=== PATIENT | female | born 1985 | race American Indian/Alaskan Native ===

== ENCOUNTER 2018-01-19 14:11 | Emergency (ER) | payer MEDICAID ==
[2018-01-19 14:26] VITALS: BP 111/67; PULSE 104; TEMP 98.1
--- NOTE | 2018-01-19 15:29 | ED PDOC ---
HPI: Back Time Seen by Provider: 01/19/18 14:20 Chief Complaint (Nursing): Back Pain Chief Complaint (Provider): Bilateral low back pain History Per: Patient History/Exam Limitations: no limitations Onset/Duration Of Symptoms: Days Current Symptoms Are (Timing): Still Present Additional Complaint(s): 32 yo female with low back pain comes to ER for US. Pt states she took a urine test which was negative but she is certain she is . Pt does not remember last period. denies N/V/D. No radiation of pain. Past Medical History Reviewed: Historical Data, Nursing Documentation, Vital Signs Vital Signs: Last Vital Signs Temp 98.1 F 01/19/18 14:23 Pulse 104 H 01/19/18 14:23 Resp 16 01/19/18 14:23 BP 111/67 01/19/18 14:23 Pulse Ox 100 01/19/18 14:23 - Medical History PMH: Bipolar Disorder, Chronic Kidney Disease (pt has 1 kidney), Schizophrenia - Surgical History Surgical History: No Surg Hx - Family History Family History: States: Unknown Family Hx - Living Arrangements Living Arrangements: With Family - Social History Current smoker - smoking cessation education provided: No Alcohol: None Drugs: Denies - Allergies Allergies/Adverse Reactions: Allergies Allergy/AdvReac Type Severity Reaction Status Date / Time No Known Allergies Allergy Verified 09/21/14 12:48 Review of Systems ROS Statement: Except As Marked, All Systems Reviewed And Found Negative Constitutional: Negative for: Fever, Chills Genitourinary Female: Negative for: Vaginal Discharge, Vaginal Bleeding, Pelvic Pain Musculoskeletal: Positive for: Back Pain Physical Exam - Reviewed Nursing Documentation Reviewed: Yes Vital Signs Reviewed: Yes - Physical Exam Appears: Positive for: Well, Non-toxic, No Acute Distress Head Exam: Positive for: ATRAUMATIC, NORMAL INSPECTION, NORMOCEPHALIC Skin: Positive for: Normal Color, Warm, DRY Eye Exam: Positive for: Normal appearance ENT: Positive for: Normal ENT Inspection Neck: Positive for: Normal, Painless ROM Cardiovascular/Chest: Positive for: Regular Rate, Rhythm Respiratory: Positive for: CNT, Normal Breath Sounds Gastrointestinal/Abdominal: Positive for: Normal Exam, Soft. Negative for: Tenderness Back: Positive for: Normal Inspection Extremity: Positive for: Normal ROM Neurologic/Psych: Positive for: Alert, Oriented - ECG O2 Sat by Pulse Oximetry: 100 Medical Decision Making Medical Decision Making: Urine (-) Motrin in ER Urine dip without leuks or nitrites Disposition - Clinical Impression Clinical Impression: Back pain - Patient ED Disposition Is Patient to be Admitted: No Counseled Patient/Family Regarding: Diagnosis, Need For Followup - Disposition Disposition: Routine/Home Disposition Time: 15:30 Condition: STABLE Instructions: Low Back Pain in Adults
[2018-01-19 15:42] VITALS: RESP 18; O2SAT 98
== END 2018-01-19 15:46 | disposition home or self-care (01) ==
LOC: H.ER 14:11
DX: M54.9 Dorsalgia, unspecified (principal)